=== PATIENT | male | born 1940 | race Caucasian/White ===

== ENCOUNTER 2016-05-08 19:13 | Emergency (ER) | payer OTHER ==
[~2016-05-08] VITALS: Ht 170.2 cm; Wt 87.6 kg
[2016-05-08 19:19] VITALS: TEMP 36.6; Ht 170.2 cm; Wt 87.6 kg
[2016-05-08] MEDS ORDERED: DILT30TA PO (19:54)
[2016-05-08] MEDS ORDERED: DOCU100C31 PO (19:54)
[2016-05-08] MEDS ORDERED: LISI-789 PO (19:54)
[2016-05-08] MEDS ORDERED: MOML PO (19:54)
[2016-05-08] MEDS ORDERED: SENN-65 PO (19:54)
[2016-05-08] MEDS ORDERED: POLY335019 PO (19:54)
[2016-05-08] MEDS ORDERED: ACET-1311 PO (19:54)
[2016-05-08] MEDS ORDERED: LEVE500T13 PO (19:54)
[2016-05-08] MEDS ORDERED: [UNRECOGNIZED DRUG - OTHER] PO (19:54)
[2016-05-08 20:43] VITALS: O2SAT 96
--- NOTE | 2016-05-08 20:45 | DIAGNOSTIC IMAGING REPORT ---
SINGLE VIEW CHEST CLINICAL HISTORY: Atypical chest pain. Fall. FINDINGS: An AP, portable, upright chest radiograph is obtained. No prior studies are available for comparison at the time of dictation. The examination is degraded by portable technique, apical lordotic positioning, and patient rotation. The heart is enlarged and there is atherosclerotic calcification of the thoracic aorta. The pulmonary vasculature is noncongested. Nonspecific interstitial thickening is noted. There is no airspace consolidation, large pleural effusion, or pneumothorax. The skeletal structures are osteopenic. The bony thorax is grossly intact. IMPRESSION: Cardiomegaly with no acute cardiopulmonary abnormality. Electronically signed by: Francisco J Whitfield M.D. 05/08/2016 8:43 PM Dictated Date/Time: 05/08/2016 8:43 PM
[2016-05-08 21:06] LABS: BASO % 0.5 %; BASO ABS # 0.03 K/uL (0-0.2); COMPLETE YES; EOS % 1.4 %; HEMATOCRIT 42.2 % (42-52); IG% 0.3 %; LYMPH % 14.2 %; LYMPH ABS # 0.83 K/uL (1.2-3.4); MEAN CELL VOLUME 91.1 fL (80-100); MEAN CORPUSCULAR HEMOGLOBIN 30.7 pg (25-34); MEAN CORPUSCULAR HGB CONC 33.6 g/dl (32-36); MONO % 11.9 %; NEUT % 71.7 %; PLATELET COUNT 150 K/uL (130-400); RED BLOOD COUNT 4.63 M/uL (4.7-6.1); WHITE BLOOD COUNT 5.86 K/uL (4.8-10.8)
[2016-05-08 21:24] LABS: BUN/CREATININE RATIO 17.5 (10-20); CALCIUM 9.3 mg/dl (8.5-10.1); CREATININE 1.4 mg/dl (0.60-1.40)
--- NOTE | 2016-05-08 21:30 | DIAGNOSTIC IMAGING REPORT ---
CT SCAN OF THE BRAIN WITHOUT IV CONTRAST CLINICAL HISTORY: Change in mental status. Fall. COMPARISON STUDY: No priors. TECHNIQUE: Unenhanced axial CT scan of the brain is performed from the vertex to the skull base. The examination is degraded by motion artifact. CT DOSE: 1257.71 mGy.cm FINDINGS: Brain parenchyma: There is a large hemorrhage centered in the left temporal lobe measuring at least 4.5 cm in maximum dimension. There is significant surrounding edema with effacement of the adjacent subcortical sulci. There is approximately 7 mm of [id number] midline shift. There is trace subarachnoid blood seen along the temporal and parietal sulci. There are age-related involutional changes noting mild subcortical and periventricular microangiopathic change. There is no evidence of acute territorial ischemia by CT criteria. No extra-axial fluid collection is seen. Ventricles, sulci, cisterns: See above. Intracranial vasculature: There is atherosclerotic calcification of the cavernous carotid and vertebral arteries. Calvarium: There is no depressed calvarial fracture. A nondepressed fracture involving the anterior left parietal bone is suspected, best seen on axial image #115 of the high-resolution series. This extends to the skull base through the sphenoid bone as seen on axial image #54. Fracture is also seen through the left zygomatic arch on axial image #7. There is mild irregularity of the left frontal bone with no clear evidence of fracture. Sinuses and mastoids: The visualized paranasal sinuses are clear. There are bilateral mastoid effusions. Orbits: There is an age indeterminant fracture of the left orbital floor. The right orbit is grossly intact. There are bilateral ocular lens implants. IMPRESSION: 1. There is a large hemorrhage centered in the left temporal lobe with significant surrounding edema. There is effacement of the adjacent cortical sulci with mild left to right midline shift. Neurosurgical consultation is advised. 2. There is trace subarachnoid extension identified along the left temporal and parietal sulci. 3. There is no depressed calvarial fracture. A nondepressed fracture is suspected involving the anterior left parietal bone extending to the skull base through the sphenoid bone. 4. Bilateral mastoid effusions. 5. Nondepressed left zygomatic arch fracture. 6. Age indeterminant left orbital floor fracture. Emergent findings were discussed with Dr. Fowler in the emergency department at the time of interpretation. Electronically signed by: Francisco J Whitfield M.D. 05/08/2016 9:28 PM Dictated Date/Time: 05/08/2016 9:10 PM
[2016-05-08 22:12] LABS: INR 1.1 (0.9-1.1); PROTHROMBIN TIME (PATIENT) 11.4 SECONDS (9.0-12.0)
--- NOTE | 2016-05-08 22:16 | DIAGNOSTIC IMAGING REPORT ---
CT SCAN OF THE CERVICAL SPINE CLINICAL HISTORY: Fall. COMPARISON STUDY: No priors. TECHNIQUE: CT scan of the cervical spine is performed from the skull base to the upper thoracic spine. Images are reviewed in the axial, sagittal, and coronal planes. IV contrast was not administered for this examination. CT DOSE: 421.16 mGy.cm FINDINGS: Skeletal structures: The skeletal structures are osteopenic. There is no evidence of fracture or subluxation involving the cervical spine. Vertebral body height and alignment are maintained. There is straightening of cervical lordosis with mild reversal centered at C4-C5. The odontoid process and lateral masses are intact. The atlantoaxial articulation is preserved noting productive degenerative change. The spinous processes appear intact. Small anterior osteophytes are seen in the lower cervical region. Degenerative endplate sclerosis is present from C4-C5 through C6-C7. There is mild to moderate multilevel cervical spondylosis. Uncovertebral and facet arthropathy is present, greatest in the lower cervical region. Intervertebral discs: There is advanced degenerative disc space narrowing seen from C4-C5 through C6-C7. Central canal: Posterior disc osteophyte complexes at C4-C5, C5-C6, and C6-C7 likely contribute to acquired compromise of the central canal. Soft tissues: The prevertebral and paraspinous soft tissues are within normal limits. There is atherosclerotic calcification of the carotid bulbs. Calvarium: The visualized calvarium at the skull base appears intact. Brain parenchyma: Partially visualized brain parenchyma the posterior fossa is grossly unremarkable. Sinuses and mastoids: The visualized paranasal sinuses are clear. There are bilateral mastoid effusions. Lung apices: Patchy airspace opacities are present at the right apex. IMPRESSION: 1. There is no evidence of fracture or subluxation involving the cervical spine. 2. Osteopenia and spondylotic change as above. 3. Mild patchy airspace opacities are present at the right apex. This could represent a mild infectious or inflammatory pneumonitis. Clinical correlation will be required. Electronically signed by: Francisco J Whitfield M.D. 05/08/2016 10:14 PM Dictated Date/Time: 05/08/2016 10:10 PM
[2016-05-08 22:20] VITALS: BP 152/82; PULSE 70; O2SAT 94
--- NOTE | 2016-05-09 01:53 | EMERGENCY ROOM VISIT NOTE ---
History Report prepared by Rafalibe: Libia Giron Under the Supervision of: Dr. Dennis Fowler M.D. First contact with patient: 20:27 Chief Complaint: FALL Stated Complaint: FALL History of Present Illness The patient is a 75 year old male who presents to the Emergency Room to be evaluated status post an unwitnessed fall at [facility] this evening. Per nursing staff notes, the patient was found on the floor there. He has a history of subdural hematomas. The patient does not remember falling. He has a history of dementia. Currently, the patient does not have any complaints and is asymptomatic. Denies headache, neck pain, chest pain, shortness of breath, vomiting, abdominal pain, back pain, arm or leg pain, hip pain, or other complaints. History limited secondary to dementia. Source of History: patient, nursing staff History Limited By: dementia Onset: this evening Position: other (global) Quality: other (unwitnessed fall) Timing: resolved Associated Symptoms: No SOB, No abdominal pain, No back pain, No chest pain , No headache, No neck pain, No vomiting Review of Systems Limited secondary to dementia. Past Medical & Surgical Medical Problems: (1) Dementia (2) Subdural hematoma Family History Unobtainable secondary to dementia. Social History Smoking Status: Unknown if Ever Smoked Housing Status: other ([facility]) Current/Historical Medications Scheduled Diltiazem Hcl (Cardizem), 60 MG PO Q6H Docusate Sodium (Docusate Sodium), 1 CAP PO BID Levetiracetam (Keppra), 500 MG PO BID Lisinopril (Zestril), 2.5 MG PO DAILY Polyethylene Glycol 3350 (Miralax), 17 GM PO DAILY Senna/Docusate Sod (Senokot S), 1 TAB PO DAILY Scheduled PRN Acetaminophen (Tylenol), 325 MG PO Q4 PRN for MILD PAIN 1-3 Lactulose (Lactulose), 20 GM PO DAILY PRN for Constipation Magnesium Hydroxide (Milk Of Magnesia), 30 ML PO DAILY PRN for Constipation Physical Exam Vital Signs Date Time Temp Pulse Resp B/P Pulse Ox O2 Delivery O2 Flow Rate FiO2 05/08/16 22:20 70 20 152/82 94 Nasal Cannula 05/08/16 21:28 72 20 140/75 94 Nasal Cannula 3.0 05/08/16 21:25 78 05/08/16 20:50 74 16 131/82 96 Room Air 05/08/16 20:43 96 Room Air 05/08/16 19:19 36.6 74 20 143/82 94 Room Air Physical Exam Constitutional: Vital signs reviewed. Eyes: Pupils are equal round reactive to light. Conjunctiva are noninjected. ENT: Pharynx is clear without erythema or exudate. Mucous membranes are moist. Neck supple without meningeal signs. No midline tenderness to the cervical spine. Respiratory: Clear to auscultation bilaterally. Breath sounds are equal bilaterally. Cardiovascular: Regular rate and rhythm. No rubs or gallops. GI: Soft, nondistended and nontender. Bowel sounds are present. Musculoskeletal: No lower extremity tenderness. No hip or extremity tenderness. Integumentary: No cyanosis. Neurological: The patient is awake and alert. Moves all extremities. No gross cranial nerve deficits. Uncooperative following commands. Psychiatric: Normal affect. Medical Decision & Procedures ER Provider Diagnostic Interpretation: X-ray results as stated below per interpretation by me and the radiologist. Other radiology results as stated below per my review and the radiologist's interpretation: CT SCAN OF THE BRAIN WITHOUT IV CONTRAST CLINICAL HISTORY: Change in mental status. Fall. COMPARISON STUDY: No priors. TECHNIQUE: Unenhanced axial CT scan of the brain is performed from the vertex to the skull base. The examination is degraded by motion artifact. CT DOSE: 1257.71 mGy.cm FINDINGS: Brain parenchyma: There is a large hemorrhage centered in the left temporal lobe measuring at least 4.5 cm in maximum dimension. There is significant surrounding edema with effacement of the adjacent subcortical sulci. There is approximately 7 mm of [id number] midline shift. There is trace subarachnoid blood seen along the temporal and parietal sulci. There are age-related involutional changes noting mild subcortical and periventricular microangiopathic change. There is no evidence of acute territorial ischemia by CT criteria. No extra-axial fluid collection is seen. Ventricles, sulci, cisterns: See above. Intracranial vasculature: There is atherosclerotic calcification of the cavernous carotid and vertebral arteries. Calvarium: There is no depressed calvarial fracture. A nondepressed fracture involving the anterior left parietal bone is suspected, best seen on axial image #115 of the high-resolution series. This extends to the skull base through the sphenoid bone as seen on axial image #54. Fracture is also seen through the left zygomatic arch on axial image #7. There is mild irregularity of the left frontal bone with no clear evidence of fracture. Sinuses and mastoids: The visualized paranasal sinuses are clear. There are bilateral mastoid effusions. Orbits: There is an age indeterminant fracture of the left orbital floor. The right orbit is grossly intact. There are bilateral ocular lens implants. IMPRESSION: 1. There is a large hemorrhage centered in the left temporal lobe with significant surrounding edema. There is effacement of the adjacent cortical sulci with mild left to right midline shift. Neurosurgical consultation is advised. 2. There is trace subarachnoid extension identified along the left temporal and parietal sulci. 3. There is no depressed calvarial fracture. A nondepressed fracture is suspected involving the anterior left parietal bone extending to the skull base through the sphenoid bone. 4. Bilateral mastoid effusions. 5. Nondepressed left zygomatic arch fracture. 6. Age indeterminant left orbital floor fracture. Emergent findings were discussed with Dr. Fowler in the emergency department at the time of interpretation. Electronically signed by: Francisco J Whitfield M.D. 05/08/2016 9:28 PM Dictated Date/Time: 05/08/2016 9:10 PM SINGLE VIEW CHEST CLINICAL HISTORY: Atypical chest pain. Fall. FINDINGS: An AP, portable, upright chest radiograph is obtained. No prior studies are available for comparison at the time of dictation. The examination is degraded by portable technique, apical lordotic positioning, and patient rotation. The heart is enlarged and there is atherosclerotic calcification of the thoracic aorta. The pulmonary vasculature is noncongested. Nonspecific interstitial thickening is noted. There is no airspace consolidation, large pleural effusion, or pneumothorax. The skeletal structures are osteopenic. The bony thorax is grossly intact. IMPRESSION: Cardiomegaly with no acute cardiopulmonary abnormality. Electronically signed by: Francisco J Whitfield M.D. 05/08/2016 8:43 PM Dictated Date/Time: 05/08/2016 8:[address] SCAN OF THE CERVICAL SPINE CLINICAL HISTORY: Fall. COMPARISON STUDY: No priors. TECHNIQUE: CT scan of the cervical spine is performed from the skull base to the upper thoracic spine. Images are reviewed in the axial, sagittal, and coronal planes. IV contrast was not administered for this examination. CT DOSE: 421.16 mGy.cm FINDINGS: Skeletal structures: The skeletal structures are osteopenic. There is no evidence of fracture or subluxation involving the cervical spine. Vertebral body height and alignment are maintained. There is straightening of cervical lordosis with mild reversal centered at C4-C5. The odontoid process and lateral masses are intact. The atlantoaxial articulation is preserved noting productive degenerative change. The spinous processes appear intact. Small anterior osteophytes are seen in the lower cervical region. Degenerative endplate sclerosis is present from C4-C5 through C6-C7. There is mild to moderate multilevel cervical spondylosis. Uncovertebral and facet arthropathy is present, greatest in the lower cervical region. Intervertebral discs: There is advanced degenerative disc space narrowing seen from C4-C5 through C6-C7. Central canal: Posterior disc osteophyte complexes at C4-C5, C5-C6, and C6-C7 likely contribute to acquired compromise of the central canal. Soft tissues: The prevertebral and paraspinous soft tissues are within normal limits. There is atherosclerotic calcification of the carotid bulbs. Calvarium: The visualized calvarium at the skull base appears intact. Brain parenchyma: Partially visualized brain parenchyma the posterior fossa is grossly unremarkable. Sinuses and mastoids: The visualized paranasal sinuses are clear. There are bilateral mastoid effusions. Lung apices: Patchy airspace opacities are present at the right apex. IMPRESSION: 1. There is no evidence of fracture or subluxation involving the cervical spine. 2. Osteopenia and spondylotic change as above. 3. Mild patchy airspace opacities are present at the right apex. This could represent a mild infectious or inflammatory pneumonitis. Clinical correlation will be required. Electronically signed by: Francisco J Whitfield M.D. 05/08/2016 10:14 PM Dictated Date/Time: 05/08/2016 10:10 PM Laboratory Results 05/08/16 20:50 Red Blood Count 4.63, Mean Corpuscular Volume 91.1, Mean Corpuscular Hemoglobin 30.7, Mean Corpuscular Hemoglobin Concent 33.6, Mean Platelet Volume 10.0, Neutrophils (%) (Auto) 71.7, Lymphocytes (%) (Auto) 14.2, Monocytes (%) (Auto) 11.9, Eosinophils (%) (Auto) 1.4, Basophils (%) (Auto) 0.5, Neutrophils # (Auto ) 4.20, Lymphocytes # (Auto) 0.83, Monocytes # (Auto) 0.70, Eosinophils # (Auto ) 0.08, Basophils # (Auto) 0.03 05/08/16 20:50 Test 05/08/16 20:50 05/08/16 21:55 White Blood Count 5.86 K/uL (4.8-10.8) Red Blood Count 4.63 M/uL (4.7-6.1) Hemoglobin 14.2 g/dL (14.0-18.0) Hematocrit 42.2 % (42-52) Mean Corpuscular Volume 91.1 fL (80-100) Mean Corpuscular Hemoglobin 30.7 pg (25-34) Mean Corpuscular Hemoglobin Concent 33.6 g/dl (32-36) Platelet Count 150 K/uL (130-400) Mean Platelet Volume 10.0 fL (7.4-10.4) Neutrophils (%) (Auto) 71.7 % Lymphocytes (%) (Auto) 14.2 % Monocytes (%) (Auto) 11.9 % Eosinophils (%) (Auto) 1.4 % Basophils (%) (Auto) 0.5 % Neutrophils # (Auto) 4.20 K/uL (1.4-6.5) Lymphocytes # (Auto) 0.83 K/uL (1.2-3.4) Monocytes # (Auto) 0.70 K/uL (0.11-0.59) Eosinophils # (Auto) 0.08 K/uL (0-0.5) Basophils # (Auto) 0.03 K/uL (0-0.2) RDW Standard Deviation 47.2 fL (36.4-46.3) RDW Coefficient of Variation 14.1 % (11.5-14.5) Immature Granulocyte % (Auto) 0.3 % Immature Granulocyte # (Auto) 0.02 K/uL (0.00-0.02) Anion Gap 10.0 mmol/L (3-11) Est Creatinine Clear Calc Drug Dose 48.9 ml/min Estimated GFR () 57.0 Estimated GFR (Non- 49.1 BUN/Creatinine Ratio 17.5 (10-20) Calcium Level 9.3 mg/dl (8.5-10.1) Prothrombin Time 11.4 SECONDS (9.0-12.0) Prothromb Time International Ratio 1.1 (0.9-1.1) Activated Partial Thromboplast Time 25.9 SECONDS (21.0-31.0) Partial Thromboplastin Ratio 1.0 Laboratory results as reviewed by me. ECG Indication: other (fall) Rate (beats per minute): 75 Rhythm: normal sinus Findings: RBBB, no ectopy ED Course 2027: The patient was evaluated in room A2. A complete history and physical exam was performed. 2131: I reassessed the patient. He has no complaints and is feeling fine. I spoke with the patient's over the phone who confirmed that he is DNR. He was recently at [facility] for a stroke and intracranial hemorrhage and that is where he should be transferred. 2139: I discussed the case with Dr. Moreno - Emergency Medicine. He will accept the patient's transfer to [facility]. 2228: The helicopter will be arriving shortly to transport the patient. Medical Decision This is a 75-year-old male who presents after he was found on the floor at [facility]. Differential diagnosis includes intracranial hemorrhage, skull fracture, contusion, concussion, metabolic derangement. I did perform a limited focused review of portions of the patient's old chart on the electronic medical record. The patient has had no prior visits to this hospital. I did evaluate the patient as noted above. History is limited due to the patient's dementia. I did obtain history from the nurse who stated the patient was found on the ground and had a prior history of subdural hematoma. The patient himself denies any complaints. He has no headache or any symptoms currently. IV access was established. The patient was placed on a continuous compliance monitor. I did order and personally review the patient's 12-lead EKG and chest x-ray as described above. I did order and review the patient's blood work as noted in the electronic medical record. I did order a CT of the head and cervical spine. I did review the images myself as well as the radiology report as described above. The patient does have an intraparenchymal hemorrhage with subarachnoid bleed as well as a skull fracture. I did reassess the patient. He continues to complain of no symptoms. I did discuss his findings with his over the telephone who consented to transfer to [facility] where he previously was cared for. I did discuss the case with Dr. Moreno at [facility] who accepted patient for transfer. The patient was transferred via helicopter in stable condition. Consults Time Called: 2134 Consulting Physician: Dr. Moreno - Emergency Medicine Returned Call: [phone] I discussed the case with him. He will accept the patient's transfer to [facility]. Impression Primary Impression: Intracranial hemorrhage Additional Impressions: Skull fracture Fall Critical Care I have personally spent greater than 30 minutes of critical care time in the direct management of this patient. This includes bedside care, interpretation of diagnostic studies, and testing, discussion with consultants, patient, and family members, and other required patient management activities. This 30 minutes is in excess of all separately billable procedures. Scribe Attestation The scribe's documentation has been prepared under my direct and personally reviewed by me in its entirety. I confirm that the note above accurately reflects all work, treatment, procedures, and medical decision making performed by me. Departure Information Dispostion Transfer Acute Care Facility Patient Instructions My [facility] Problem Qualifiers
== END 2016-05-08 23:17 | disposition short-term general hospital (02) ==
LOC: EDBD 19:13 → C.EDA 19:17
DX: F03.90 Unspecified dementia, unspecified severity, without behavioral disturbance, psychotic disturbance, mood disturbance, and anxiety (principal); M85.80 Other specified disorders of bone density and structure, unspecified site; I62.9 Nontraumatic intracranial hemorrhage, unspecified; S02.91XA Unspecified fracture of skull, initial encounter for closed fracture; W19.XXXA Unspecified fall, initial encounter